=== PATIENT | male | born 1955 | race Caucasian/White ===

== ENCOUNTER 2018-08-09 07:48 | Day surgery (SDC) | payer OTHER ==
[2018-08-02 11:54] VITALS: BMI 22.9
[2018-08-09 08:04] VITALS: TEMP 97.6
[2018-08-09] MEDS ORDERED: PROPOFOL 20 ML ONE (09:40)
[2018-08-09 10:19] VITALS: BP 125/83; PULSE 84
== END 2018-08-09 10:25 | disposition home or self-care (01) ==
LOC: FASU-ENDO 07:48
PROVIDERS: ATTEND Internal Medicine Gastroenterology
PROC: 0DJD8ZZ Inspection of Lower Intestinal Tract, Via Natural or Artificial Opening Endoscopic (ICD-10-PCS; principal; 2018-08-09 09:00)
DX: Z12.11 Encounter for screening for malignant neoplasm of colon (principal); K57.30 Diverticulosis of large intestine without perforation or abscess without bleeding; K64.8 Other hemorrhoids